=== PATIENT | female | born 1985 | race Caucasian/White ===

== ENCOUNTER 2024-02-01 10:42 | Outpatient (CLI) | payer BC, SELFPAY ==
--- NOTE | 2024-02-01 11:00 | MR_ITS ---
WS: [id number] MRI HEAD WITHOUT AND WITH GADOLINIUM ENHANCEMENT WITH ATTENTION TO THE PITUITARY. TECHNIQUE: Sagittal T1, axial T2, axial FLAIR, and axial diffusion-weighted imaging was obtained. Lesvia ceptibility weighted imaging. Pre and post T1 gadolinium multiplanar imaging. Pituitary protocol util ized with high-resolution imaging. Dynamic pituitary imaging obtained. CLINICAL INFORMATION: Decreased TSH. Thyroid production issues. Pituitary mass. COMPARISON: None. FINDINGS: Normal optic chiasm and pituitary infundibulum. Normal cavernous sinuses and Meckel's cave. Somewhat small volume pituitary tissue for a patient this age. No evidence of intrasellar or suprase llar mass. No hypoenhancing lesion to indicate pituitary microadenoma. Normal cavernous sinuses and M martell's cave. No evidence of restricted diffusion to suggest acute ischemia. Ventricular system and basal cisterns are patent. No suspicious intracranial signal normalities. Normal pulliam-white differentiation. No extr a-axial fluid collections. No evidence of mass or mass effect. No hemosiderin on susceptibility-weigh melanie images. Normal posterior fossa. Normal vascular flow voids at the skull base. No extra-axial fluid collection s. Paranasal sinuses and mastoid air cells are well aerated. Normal parapharyngeal fat. Normal test eng ior nasopharynx. Visualized orbits are normal. IMPRESSION: 1. Somewhat small volume pituitary tissue for patient this age. Otherwise normal enhancing pituitary tissue. No evidence of intrasellar or suprasellar mass. 2. No evidence of pituitary microadenoma. 3. Normal optic chiasm and pituitary infundibulum. 4. No other suspicious findings.
[2024-02-01] MEDS: gadobenate dimeglumine 20 mL vial IV (11:43)
== END 2024-02-01 10:43 | disposition home or self-care (01) ==
LOC: RAD 10:45
PROVIDERS: PCP Nurse Practitioner Family; Visit Provider Internal Medicine
DX: D35.2 Benign neoplasm of pituitary gland (principal); E04.2 Nontoxic multinodular goiter
CPT/HCPCS: 70553; A9577